=== PATIENT | male | born 1950 | race Caucasian/White ===

== ENCOUNTER 2018-10-18 11:52 | Emergency (ER) | payer OTHER ==
[~2018-10-18] VITALS: Ht 180.3 cm; Wt 113.6 kg
--- NOTE | 2018-10-18 13:40 | NUR ---
ULTRASOUND AT BEDSIDE
[2018-10-18] MEDS ORDERED: TRAM50TA2 PO (13:57)
[2018-10-18 14:09] VITALS: BP 138/75
== END 2018-10-18 14:13 | disposition home or self-care (01) ==
LOC: ER 11:52
DX: M79.605 Pain in left leg (principal); L90.5 Scar conditions and fibrosis of skin; Z79.899 Other long term (current) drug therapy
CPT/HCPCS: 93971; 99284

== ENCOUNTER 2019-01-16 16:07 | Emergency (ER) | payer MEDICARE, OTHER ==
[~2019-01-16] VITALS: Ht 180.3 cm; Wt 90.0 kg
[2019-01-16 17:37] LABS: CLARITY,URINE CLEAR (Clear); COLOR,URINE STRAW (Yellow); GLUCOSE, URINE NEGATIVE (Neg); KETONES,URINE NEGATIVE (Neg); LEUKOCYTE ESTERASE ,URINE NEGATIVE (Neg); NITRITES, URINE NEGATIVE (Neg); OCCULT BLOOD,URINE NEGATIVE (Neg); PROTEIN,URINE NEGATIVE (Neg); UA COLLECTION TYPE CLN CATCH MIDSTREAM; UROBILINOGEN,URINE 0.2 E.U/dL (0.2-1.0)
[2019-01-16 19:12] VITALS: BP 149/97
== END 2019-01-16 19:13 | disposition home or self-care (01) ==
LOC: ER 16:08
DX: I10 Essential (primary) hypertension (principal); G30.0 Alzheimer's disease with early onset; F02.80 Dementia in other diseases classified elsewhere, unspecified severity, without behavioral disturbance, psychotic disturbance, mood disturbance, and anxiety
CPT/HCPCS: 81003; 93005; 99284